=== PATIENT | female | born 1965 | race Caucasian/White ===

== ENCOUNTER → 2019-09-20 | Outpatient (CLI) | payer BC | END | disposition home or self-care (01) | LOC: US 16:00 | DX: R93.89 Abnormal findings on diagnostic imaging of other specified body structures (principal); N95.0 Postmenopausal bleeding ==

== ENCOUNTER → 2022-04-08 | Outpatient (CLI) | payer BC ==
[2022-04-08 14:24] LABS: BASO # 0.1 10*3/uL (0.0-0.1); BASO % 0.8 % (0.0-1.0); EOS # 0.4 10*3/uL (0.0-0.4); EOS % 4.2 % (1.0-4.0); HEMATOCRIT 38.1 % (37.0-47.0); LYMPH % 20.3 % (27.0-41.0); MEAN CORPUSCULAR HGB CONC 30.2 g/dl (33.0-37.0); MEAN PLATELET VOLUME 9.4 fl (9.6-12.3); MONO # 0.6 10*3/uL (0.1-1.0); MONO % 6.2 % (3.0-9.0); NEUT # 6.6 10*3/uL (2.3-7.9); NEUT % 68.1 % (47.0-73.0); PLATELET COUNT AUTOMATED 359 10*3/uL (130-400); RED BLOOD COUNT 4.43 10*6/uL (4.10-5.10); RED CELL DISTRI WIDTH 16.4 % (0-14.5); WHITE BLOOD COUNT 9.7 10*3/uL (4.8-10.8)
[2022-04-08 14:38] LABS: ALKALINE PHOSPHATASE 67 U/L (46-116); SGPT/ALT 12 U/L (10-49); TOTAL PROTEIN 7.7 gm/dL (6.0-8.0)
[2022-04-08 14:42] LABS: ALKALINE PHOSPHATASE 67 U/L (46-116); BUN 15 mg/dl (9-23); CHLORIDE 102 mmol/L (98-107); CHOLESTEROL 156 mg/dL (<200); FREE T4 1.23 ng/dl (0.89-1.76); LDL CHOLESTEROL 86 mg/dL (9-159); POTASSIUM 4.1 mmol/L (3.4-5.1); SGPT/ALT 11 U/L (10-49); THYROID STIM HORMONE (HS) 1.405 uIU/ml (0.550-4.780); TOTAL PROTEIN 7.7 gm/dL (6.0-8.0); TRIGLYCERIDES 153 mg/dl (<150)
[2022-04-08 15:07] LABS: VITAMIN D, 25-HYDROXY 41.2 ng/mL (30-100)
[2022-04-09 09:07] LABS: HBSAG Negative (Negative); HEP B CORE AB, IGM Negative (Negative); HEPATITIS C ANTIBODY <0.1 (0.0-0.9)
[2022-04-10 11:07] LABS: TB1 Ag VALUE 0.04 IU/mL (.)
== END | disposition home or self-care (01) ==
LOC: LAB 13:20
PROVIDERS: Internal Medicine; ATTEND Specialist
DX: I10 Essential (primary) hypertension (principal); N32.81 Overactive bladder; L73.2 Hidradenitis suppurativa; C55 Malignant neoplasm of uterus, part unspecified

== ENCOUNTER → 2022-05-28 | Outpatient (CLI) | payer BC | END | disposition home or self-care (01) | LOC: LAB 12:21 | PROVIDERS: ATTEND Internal Medicine | DX: N39.0 Urinary tract infection, site not specified (principal) ==

== ENCOUNTER → 2023-06-11 | Outpatient (CLI) | payer BC ==
[2023-06-11 16:27] LABS: BASO # 0.1 10*3/uL (0.0-0.1); BASO % 0.9 % (0.0-1.0); EOS # 0.3 10*3/uL (0.0-0.4); HEMATOCRIT 41.2 % (37.0-47.0); LYMPH # 2.3 10*3/uL (1.3-4.4); LYMPH % 23.3 % (27.0-41.0); MEAN CELL VOLUME 87.1 fl (81.0-99.0); MEAN CORPUSCULAR HGB 26.6 pg (27.0-31.0); MEAN CORPUSCULAR HGB CONC 30.6 g/dl (33.0-37.0); MEAN PLATELET VOLUME 9.2 fl (9.6-12.3); MONO # 0.7 10*3/uL (0.1-1.0); MONO % 7.2 % (3.0-9.0); NEUT # 6.4 10*3/uL (2.3-7.9); NEUT % 65.3 % (47.0-73.0); PLATELET COUNT AUTOMATED 325 10*3/uL (130-400); RED BLOOD COUNT 4.73 10*6/uL (4.10-5.10); WHITE BLOOD COUNT 9.8 10*3/uL (4.8-10.8)
[2023-06-11 16:55] LABS: ALKALINE PHOSPHATASE 78 U/L (46-116); BUN 16 mg/dl (9-23); CHLORIDE 105 mmol/L (98-107); CHOLESTEROL 198 mg/dL (<200); FREE T4 1.18 ng/dl (0.89-1.76); LDL CHOLESTEROL 103 mg/dL (9-159); POTASSIUM 4.4 mmol/L (3.4-5.1); SGPT/ALT 12 U/L (5-49); TOTAL PROTEIN 7.4 gm/dL (6.0-8.0); TRIGLYCERIDES 252 mg/dl (<150); VITAMIN D, 25-HYDROXY 35.3 ng/mL (30-100)
== END | disposition home or self-care (01) ==
LOC: LAB 15:53
PROVIDERS: ATTEND Internal Medicine
DX: Z13.1 Encounter for screening for diabetes mellitus (principal); Z13.0 Encounter for screening for diseases of the blood and blood-forming organs and certain disorders involving the immune mechanism; Z13.21 Encounter for screening for nutritional disorder; Z13.220 Encounter for screening for lipoid disorders; Z13.228 Encounter for screening for other metabolic disorders; Z13.29 Encounter for screening for other suspected endocrine disorder; Z13.6 Encounter for screening for cardiovascular disorders; Z13.9 Encounter for screening, unspecified; Z13.89 Encounter for screening for other disorder; I10 Essential (primary) hypertension

== ENCOUNTER → 2023-08-05 | Outpatient (CLI) | payer BC | END | disposition home or self-care (01) | LOC: RAD 17:15 | PROVIDERS: ATTEND Internal Medicine | DX: S73.102A Unspecified sprain of left hip, initial encounter (principal); M16.0 Bilateral primary osteoarthritis of hip; M76.892 Other specified enthesopathies of left lower limb, excluding foot; M76.891 Other specified enthesopathies of right lower limb, excluding foot; R60.9 Edema, unspecified; M70.72 Other bursitis of hip, left hip; M70.71 Other bursitis of hip, right hip; X58.XXXA Exposure to other specified factors, initial encounter; Y93.89 Activity, other specified; Y92.89 Other specified places as the place of occurrence of the external cause; Y99.8 Other external cause status ==

== ENCOUNTER → 2023-08-28 | Outpatient (CLI) | payer BC | END | disposition home or self-care (01) | LOC: CT 08-18 11:00 | PROVIDERS: ATTEND Internal Medicine | DX: R91.8 Other nonspecific abnormal finding of lung field (principal) ==